=== PATIENT | male | born 1955 | race Caucasian/White ===

== ENCOUNTER 2019-10-01 11:34 | Day surgery (SDC) | payer OTHER ==
[~2019-10-01] VITALS: Ht 167.6 cm; Wt 69.5 kg
[~2019-10-01 11:34] MED LIST: GLUC1TAB27 PO
[2019-10-01] MEDS ORDERED: LACTATED RINGERS 1,000 ML IV SCH (11:50)
[2019-10-01] MEDS ORDERED: CHLORHEXIDINE 15 ML UDC MM ONE (12:00)
[2019-10-01] MEDS ORDERED: PLEASE ENTER HEIGHT AND WEIGHT MC SCH (12:00)
[2019-10-01 12:01] VITALS: BP 140/97
[2019-10-01] MEDS ORDERED: LEVO25TA4 PO (12:01)
[2019-10-01] MEDS ORDERED: ROSU5TAB PO (12:01)
[2019-10-01] MEDS ORDERED: [UNRECOGNIZED DRUG - OTHER] PO (12:01)
[2019-10-01] MEDS ORDERED: FENTANYL PF 100 MCG/2ML ONE ×4 (13:17→16:02)
[2019-10-01] MEDS ORDERED: MIDAZOLAM 1 MG/ML, 2ML ONE (13:17)
[2019-10-01] MEDS ORDERED: BUPIVACAINE/PF 0.5% ONE (13:21)
[2019-10-01] MEDS ORDERED: CEFAZOLIN 1,000 MG ONE (14:03)
[2019-10-01] MEDS ORDERED: ONDANSETRON 2MG/ML, 2ML ONE (14:03)
[2019-10-01] MEDS ORDERED: PROPOFOL 10 MG/ML, 20ML ONE (14:03)
[2019-10-01] MEDS ORDERED: DEXAMETHASONE 4 MG/ML, 1ML ONE (14:03)
[2019-10-01] MEDS ORDERED: OXYcodone 5 MG/5 ML ORAL.SOL UDC PO PRN (14:30)
[2019-10-01] MEDS ORDERED: PROMETHAZINE 25 MG/ML, 1ML IVPush PRN (14:30)
[2019-10-01] MEDS ORDERED: MEPERIDINE/PF 25MG/0.5ML IVPush PRN (14:30)
[2019-10-01] MEDS ORDERED: HYDROcodone/APAP 7.5-325MG/15ML UDC PO PRN (14:30)
[2019-10-01] MEDS ORDERED: KETOROLAC 30 MG/1 ML IVPush PRN (14:30)
[2019-10-01] MEDS ORDERED: OXYcodone 5 MG/5 ML ORAL.SOL UDC ONE ×2 (15:32→15:36)
[2019-10-01] MEDS: FENTANYL PF 100 MCG/2ML IV PRN ×4 (15:35→16:22)
[2019-10-01] MEDS ORDERED: HYDROmorphone 1 MG/ML, 1ML INJ ONE ×2 (15:51→16:23)
[2019-10-01] MEDS: HYDROmorphone 1 MG/ML, 1ML INJ IVPush PRN ×3 (15:55→16:25)
[2019-10-01] MEDS ORDERED: hydrALAzine 20 MG/ML, 1ML ONE (16:02)
[2019-10-01] MEDS ORDERED: KETOROLAC 30 MG/1 ML ONE (16:16)
[2019-10-01] MEDS ORDERED: hydrALAzine 20 MG/ML, 1ML IV PRN (16:30)
== END 2019-10-01 17:55 | disposition home or self-care (01) ==
LOC: OUT 11:34
PROVIDERS: ATTEND Surgery Surgery of the Hand
DX: S52.572A Other intraarticular fracture of lower end of left radius, initial encounter for closed fracture (principal); Z11.59 Encounter for screening for other viral diseases; E03.9 Hypothyroidism, unspecified; Z79.890 Hormone replacement therapy; Z79.891 Long term (current) use of opiate analgesic; Z98.890 Other specified postprocedural states; W01.0XXA Fall on same level from slipping, tripping and stumbling without subsequent striking against object, initial encounter; Y93.01 Activity, walking, marching and hiking; Y92.89 Other specified places as the place of occurrence of the external cause; Y99.8 Other external cause status
CPT/HCPCS: 25609; 73100; 93005; C1713; C1769; J0360; J0690; J1100; J1170; J1885; J2250; J2405; J2704; J3010; J7120; U0001; 76000

== ENCOUNTER → 2020-09-15 | Outpatient (CLI) | payer OTHER ==
[~2020-09-15] MED LIST changes: +LEVO25TA4 PO; +ROSU5TAB PO; +[UNRECOGNIZED DRUG - OTHER] PO
== END | disposition home or self-care (01) ==
LOC: STAR 09:09
PROVIDERS: ATTEND Orthopaedic Surgery
DX: Z01.818 Encounter for other preprocedural examination (principal); S52.592D Other fractures of lower end of left radius, subsequent encounter for closed fracture with routine healing; M25.532 Pain in left wrist; R94.31 Abnormal electrocardiogram [ECG] [EKG]; I44.7 Left bundle-branch block, unspecified; X58.XXXD Exposure to other specified factors, subsequent encounter
CPT/HCPCS: 93005

== ENCOUNTER → 2020-09-22 | Outpatient (CLI) | payer OTHER | END | disposition home or self-care (01) | LOC: STAR 09:21 | PROVIDERS: ATTEND Orthopaedic Surgery | DX: Z20.822 Contact with and (suspected) exposure to COVID-19 (principal) | CPT/HCPCS: U0003; U0005 ==

== ENCOUNTER 2020-09-26 05:50 | Day surgery (SDC) | payer OTHER ==
[~2020-09-26] VITALS: Ht 167.6 cm; Wt 68.7 kg
[2020-09-26 06:14] VITALS: BP 156/81
[2020-09-26] MEDS ORDERED: CHLORHEXIDINE 15 ML UDC PO ONE (06:30)
[2020-09-26] MEDS ORDERED: LACTATED RINGERS 1,000 ML IV SCH (06:30)
[2020-09-26] MEDS ORDERED: BUPIVACAINE/PF 0.5% ONE (06:48)
[2020-09-26] MEDS ORDERED: PROPOFOL 10 MG/ML, 20ML ONE (07:11)
[2020-09-26] MEDS ORDERED: MIDAZOLAM 1 MG/ML, 2ML ONE (07:11)
[2020-09-26] MEDS ORDERED: FENTANYL PF 100 MCG/2ML ONE (07:11)
[2020-09-26] MEDS ORDERED: ONDANSETRON 2MG/ML, 2ML ONE (07:16)
[2020-09-26] MEDS ORDERED: LIDOCAINE-MPF 2% ,5ML ONE (07:16)
[2020-09-26] MEDS ORDERED: CEFAZOLIN 1,000 MG ONE (07:16)
[2020-09-26] MEDS ORDERED: PROMETHAZINE 25 MG/ML, 1ML IVPush PRN (07:30)
[2020-09-26] MEDS ORDERED: ONDANSETRON 2MG/ML, 2ML IVPush PRN (07:30)
[2020-09-26] MEDS ORDERED: FENTANYL PF 100 MCG/2ML IV PRN (07:30)
[2020-09-26] MEDS ORDERED: MEPERIDINE/PF 25MG/0.5ML IVPush PRN (07:30)
[2020-09-26] MEDS ORDERED: OXYcodone 5 MG/5 ML ORAL.SOL UDC PO PRN (07:30)
[2020-09-26] MEDS ORDERED: DIPHENHYDRAMINE 50 MG/ML, 1ML IVPush PRN (07:30)
[2020-09-26] MEDS ORDERED: DIAZEPAM 5 MG/ML, 2ML IVPush PRN (07:30)
[2020-09-26] MEDS ORDERED: HYDROmorphone 1 MG/ML, 1ML INJ IVPush PRN (07:30)
[2020-09-26] MEDS ORDERED: ACETAMINOPHEN 325 MG TABLET PO PRN (07:30)
[2020-09-26] MEDS ORDERED: ACETAMINOPHEN 650 MG/20.3 ML UDC ONE (08:25)
[2020-09-26] MEDS ORDERED: OXYcodone 5 MG/5 ML ORAL.SOL UDC ONE (08:25)
== END 2020-09-26 09:15 | disposition home or self-care (01) ==
LOC: OUT 05:50
PROVIDERS: ATTEND Orthopaedic Surgery
DX: T84.84XA Pain due to internal orthopedic prosthetic devices, implants and grafts, initial encounter (principal); G56.02 Carpal tunnel syndrome, left upper limb; E03.9 Hypothyroidism, unspecified; E78.5 Hyperlipidemia, unspecified; Z79.890 Hormone replacement therapy; Z79.899 Other long term (current) drug therapy; Z98.890 Other specified postprocedural states; Z82.61 Family history of arthritis; Y83.8 Other surgical procedures as the cause of abnormal reaction of the patient, or of later complication, without mention of misadventure at the time of the procedure
CPT/HCPCS: 20680; 64721; 73100; J0690; J2250; J2405; J2704; J3010; J7120; 76000